=== PATIENT | male | born 1995 | race Hispanic/Latino ===

== ENCOUNTER 2020-10-30 19:19 | Emergency (ER) | payer SELFPAY ==
[2020-10-30] MEDS ORDERED: BENADRY2 EX (22:26)
[2020-10-30] MEDS ORDERED: NAPROXEN500 MG PO (22:26)
[2020-10-30 22:42] VITALS: BP 155/84
== END 2020-10-30 22:42 | disposition home or self-care (01) | DRG 552 ==
LOC: ED 19:19
DX: S33.5XXA Sprain of ligaments of lumbar spine, initial encounter (principal); L25.9 Unspecified contact dermatitis, unspecified cause; X50.0XXA Overexertion from strenuous movement or load, initial encounter; Y93.89 Activity, other specified; Y92.89 Other specified places as the place of occurrence of the external cause; Y99.0 Civilian activity done for income or pay

== ENCOUNTER 2021-03-26 08:57 | Emergency (ER) | payer OTHER ==
[~2021-03-26] VITALS: Ht 152.4 cm; Wt 72.7 kg
[~2021-03-26 08:57] MED LIST: BENADRY2 EX; NAPROXEN500 MG PO
[2021-03-26] MEDS ORDERED: ZPAK PO (13:40)
[2021-03-26 13:50] VITALS: BP 151/94
== END 2021-03-26 13:50 | disposition home or self-care (01) | DRG 179 ==
LOC: ED 08:57
DX: U07.1 COVID-19 (principal)

== ENCOUNTER 2021-07-16 05:09 | Emergency (ER) | payer SELFPAY ==
[~2021-07-16] VITALS: Ht 152.4 cm; Wt 70.0 kg
[~2021-07-16 05:09] MED LIST changes: +ZPAK PO
[2021-07-16 06:06] LABS: HEMATOCRIT 46.3 % (39.0-50.0); HEMOGLOBIN 15.2 g/dl (14.0-18.0); IMMATURE GRANULOCYTES 0.2 % (0.0-5.0); MEAN CELL VOLUME 90.3 fL CALC (80.0-100.0); MEAN CORPUSCULAR HGB 29.6 pG CALC (26.0-32.0); MEAN CORPUSCULAR HGB CONC 32.8 g/dL CAL (32.0-36.0); NEUT# 7.43 thou/uL (1.82-7.42); RED BLOOD COUNT 5.13 mill/uL (4.70-6.10); RED CELL DISTRI WIDTH 12.7 % (11.5-15.5)
[2021-07-16 06:13] LABS: ALBUMIN 4.5 g/dL (3.2-5.0); ALKALINE PHOSPHATASE 116 u/l (38-126); ANION GAP 13 (6-22 (CALC)); BILIRUBIN, TOTAL 0.6 mg/dL (0.0-1.4); BUN 23 mg/dL (9-20); BUN/CREATININE RATIO 21 (12-20 (CALC)); CARBON DIOXIDE 28 mmol/l (22-30); CHLORIDE 101 mmol/l (95-108); CREATININE 1.1 mg/dL (0.7-1.3); GFR > 60 ML/MIN (>=60 (CALC)); GFR FOR AFR.AMER. > 60 ML/MIN (>=60 (CALC)); LIPASE 99 u/l (23-300); POTASSIUM 3.3 mmol/l (3.5-5.1); SGOT/AST 215 u/l (17-59); SODIUM 138 mmol/l (137-146); TOTAL PROTEIN 7.9 g/dL (6.3-8.2)
[2021-07-16] MEDS ORDERED: VITAMIN D22000 UNIT PO (07:11)
[2021-07-16] MEDS ORDERED: OMEPRAZOLE20 MG PO (07:11)
[2021-07-16 07:52] LABS: URINE BILIRUBIN - DIPSTICK NEGATIVE (NEGATIVE); URINE BLOOD DIPSTICK SMALL (NEGATIVE); URINE COLOR YELLOW; URINE GLUCOSE - DIPSTICK NEGATIVE (NEGATIVE); URINE KETONE NEGATIVE (NEGATIVE); URINE LEUK ESTERASE NEGATIVE (NEGATIVE); URINE PROTEIN - DIPSTICK NEGATIVE (NEG-TRACE); URINE SPECIFIC GRAVITY 1.015; URINE UROBILINOGEN - DIPSTICK 0.2 E.U./dL (0.2)
[2021-07-16 07:55] LABS: URINE NITRITE - DIPSTICK NEGATIVE (Negative); URINE RBC 0-2 RBC/hpf (0-5)
[2021-07-16 07:56] LABS: URINE EPITHELIAL CELLS RARE EPI/hpf (0-FEW)
[2021-07-16] MEDS ORDERED: OMEPRAZOLE DR40 MG PO (08:11)
[2021-07-16] MEDS ORDERED: ZOFRAN4 M1 PO (08:11)
[2021-07-16 08:30] VITALS: BP 193/83
== END 2021-07-16 08:30 | disposition home or self-care (01) | DRG 392 ==
LOC: ED 05:09
PROVIDERS: Emergency Medicine
DX: R10.9 Unspecified abdominal pain (principal); R11.10 Vomiting, unspecified; K52.9 Noninfective gastroenteritis and colitis, unspecified; R55 Syncope and collapse
CPT/HCPCS: Q9967

== ENCOUNTER 2024-06-17 16:47 | Emergency (ER) | payer SELFPAY ==
[~2024-06-17] VITALS: Ht 152.4 cm; Wt 74.8 kg
[~2024-06-17 16:47] MED LIST changes: +OMEPRAZOLE DR40 MG PO; +OMEPRAZOLE20 MG PO; +VITAMIN D22000 UNIT PO; +ZOFRAN4 M1 PO
[2024-06-17] MEDS ORDERED: LIDOcaine HCl 1% (Local Anesth.) 20 ML VIAL IM STA (17:54)
[2024-06-17] MEDS ORDERED: cefTRIAXone SODIUM 1 GM/VIAL SDV IM ONE (17:55)
[2024-06-17] MEDS ORDERED: Diph, Acellular Pertussis, Tet 0.5 ML/VIAL (Tdap) SDV IM ONE (17:55)
[2024-06-17] MEDS ORDERED: KEFLEX500 MG PO (18:05)
[2024-06-17 18:23] VITALS: BP 131/92
== END 2024-06-17 18:29 | disposition home or self-care (01) | DRG 605 ==
LOC: ED 16:47
DX: S61.232A Puncture wound without foreign body of right middle finger without damage to nail, initial encounter (principal); W45.0XXA Nail entering through skin, initial encounter; Y92.89 Other specified places as the place of occurrence of the external cause; Y99.0 Civilian activity done for income or pay